=== PATIENT | female | born 1960 | race Asian ===

== ENCOUNTER 2017-03-09 10:15 | Day surgery (SDC) | payer OTHER ==
[~2017-03-09] VITALS: Ht 152.4 cm; Wt 54.4 kg
[~2017-03-09 10:15] MED LIST: GLUCOPHAGE500 MG PO
[2017-03-09 10:53] LABS: HEMATOCRIT 42.1 % (36.0-46.0); MCH 29.4 PG (29.0-34.0); MCHC 32.8 G/DL (30.0-36.0); MCV 89.6 FL (83-99); MEAN PLAT.VOLUME 9.4 uM^3 (9.5-12.4); PLATELET COUNT 207 K/uL (156-360); RBC DIS.WIDTH-CV 11.7 % (11.8-14.6); RBC DIS.WIDTH-SD 38.1 % (39-53); WHITE BLOOD COUNT 5.4 K/uL (4.1-10.2)
[2017-03-09 11:12] LABS: POINT-OF-CARE METER ID UU14174212
[2017-03-09 11:16] VITALS: BP 157/76
[2017-03-09 11:38] LABS: ALKALINE PHOSPHATASE 71 IU/L (3-129); ANION GAP 9 MEQ/L (2-14); CHLORIDE 106 MEQ/L (99-109); GFR ESTIMATE (CALCULATED) > 59 mL/min/; GLUCOSE 94 mg/dL (70-99); POTASSIUM 3.9 MEQ/L (3.7-5.4); SAMPLE HEMOLYSIS CHECK 0; SAMPLE ICTERIC CHECK 0; SAMPLE LIPEMIA CHECK 0; SODIUM 145 MEQ/L (136-147); TOTAL BILIRUBIN 0.7 MG/DL (0.0-1.0); UREA NITROGEN (BUN) 7 mg/dL (9-23)
[2017-03-09 13:58] LABS: POINT-OF-CARE METER ID UU13113675
[2017-03-09 14:15] VITALS: BP 147/76
[2017-03-09 14:51] VITALS: BP 140/76
== END 2017-03-09 15:03 | disposition home or self-care (01) ==
LOC: SDC 10:15
PROVIDERS: Ophthalmology
DX: H33.42 Traction detachment of retina, left eye (principal); H43.12 Vitreous hemorrhage, left eye; E11.39 Type 2 diabetes mellitus with other diabetic ophthalmic complication; I25.10 Atherosclerotic heart disease of native coronary artery without angina pectoris; Z79.84 Long term (current) use of oral hypoglycemic drugs; R94.31 Abnormal electrocardiogram [ECG] [EKG]
CPT/HCPCS: 80053; 82948; 85027; 93005; J0690; J1100; J2795; J3010; J3300

== ENCOUNTER 2017-04-17 05:47 | Day surgery (SDC) | payer OTHER ==
[~2017-04-17] VITALS: Ht 152.4 cm; Wt 54.4 kg
[2017-04-17 06:27] LABS: HEMATOCRIT 41.8 % (36.0-46.0); HEMOGLOBIN 13.6 G/DL (11.9-15.5); MCH 30.2 PG (29.0-34.0); MCHC 32.5 G/DL (30.0-36.0); MCV 92.9 FL (83-99); PLATELET COUNT 179 K/uL (156-360); RBC DIS.WIDTH-CV 11.9 % (11.8-14.6); RBC DIS.WIDTH-SD 40.9 % (39-53); WHITE BLOOD COUNT 4.7 K/uL (4.1-10.2)
[2017-04-17 06:31] VITALS: BP 152/75
[2017-04-17 06:45] LABS: ALBUMIN 4.3 G/DL (3.2-4.8); CHLORIDE 106 MEQ/L (99-109); POTASSIUM 3.9 MEQ/L (3.7-5.4); SODIUM 145 MEQ/L (136-147); TOTAL BILIRUBIN 0.4 MG/DL (0.0-1.0)
[2017-04-17 06:51] LABS: ALKALINE PHOSPHATASE 89 IU/L (3-129); ALT (GPT) 23 IU/L (3-49); AST (GOT) 19 IU/L (2-34); CREATININE 0.5 MG/DL (0.6-1.3); GFR ESTIMATE (CALCULATED) > 59 mL/min/; GLUCOSE 124 mg/dL (70-99); TOTAL PROTEIN 7.4 G/DL (6.4-8.3); UREA NITROGEN (BUN) 9 mg/dL (9-23)
[2017-04-17 08:58] VITALS: BP 136/72
[2017-04-17 09:30] VITALS: BP 132/61
== END 2017-04-17 09:30 | disposition home or self-care (01) ==
LOC: SDC 05:47
PROVIDERS: Ophthalmology
DX: H33.41 Traction detachment of retina, right eye (principal); H43.11 Vitreous hemorrhage, right eye; E11.9 Type 2 diabetes mellitus without complications; Z79.84 Long term (current) use of oral hypoglycemic drugs
CPT/HCPCS: 80053; 82948; 85027; J0690; J1100; J2795; J3300

== ENCOUNTER 2017-05-18 13:59 | Day surgery (SDC) | payer OTHER ==
[~2017-05-18] VITALS: Ht 152.4 cm; Wt 54.4 kg
[2017-05-18 14:55] VITALS: BP 150/70
[2017-05-18 18:10] VITALS: BP 157/73
[2017-05-18 19:10] VITALS: BP 167/76
== END 2017-05-18 19:10 | disposition home or self-care (01) ==
LOC: SDC 13:59
PROVIDERS: Ophthalmology
DX: H43.12 Vitreous hemorrhage, left eye (principal); E11.9 Type 2 diabetes mellitus without complications; Z79.84 Long term (current) use of oral hypoglycemic drugs; R94.31 Abnormal electrocardiogram [ECG] [EKG]
CPT/HCPCS: 82948; J0690; J1100; J1170; J2405; J2795

== ENCOUNTER 2017-09-14 10:14 | Day surgery (SDC) | payer OTHER ==
[~2017-09-14] VITALS: Ht 154.9 cm; Wt 55.3 kg
[2017-09-14 10:48] VITALS: BP 153/78
[2017-09-14 12:32] LABS: HEMOGLOBIN 13.2 G/DL (11.9-15.5); MCH 29.2 PG (29.0-34.0); MCHC 32.2 G/DL (30.0-36.0); MCV 90.7 FL (83-99); PLATELET COUNT 197 K/uL (156-360); RBC DIS.WIDTH-CV 11.6 % (11.8-14.6); RBC DIS.WIDTH-SD 38.7 % (39-53); RED BLOOD COUNT 4.52 M/uL (3.80-5.20); WHITE BLOOD COUNT 4.5 K/uL (4.1-10.2)
[2017-09-14 12:55] LABS: ALBUMIN 4.4 G/DL (3.2-4.8); ALKALINE PHOSPHATASE 72 IU/L (3-129); ALT (GPT) 29 IU/L (3-49); AST (GOT) 20 IU/L (2-34); CHLORIDE 104 MEQ/L (99-109); CREATININE 0.5 MG/DL (0.6-1.3); GFR ESTIMATE (CALCULATED) > 59 mL/min/; GLUCOSE 153 mg/dL (70-99); SODIUM 142 MEQ/L (136-147); TOTAL BILIRUBIN 0.7 MG/DL (0.0-1.0); TOTAL PROTEIN 7.2 G/DL (6.4-8.3); UREA NITROGEN (BUN) 10 mg/dL (9-23)
[2017-09-14 14:20] VITALS: BP 138/72
[2017-09-14 14:45] VITALS: BP 131/74
== END 2017-09-14 14:50 | disposition home or self-care (01) ==
LOC: SDC 10:14
PROVIDERS: Ophthalmology
PROC: 3E0C33Z Introduction of Anti-inflammatory into Eye, Percutaneous Approach (ICD-10-PCS; principal; 2017-09-14)
PROC: 08B43ZZ Excision of Right Vitreous, Percutaneous Approach (ICD-10-PCS; principal; 2017-09-14)
PROC: 08QE3ZZ Repair Right Retina, Percutaneous Approach (ICD-10-PCS; principal; 2017-09-14)
PROC: 3E0C329 Introduction of Other Anti-infective into Eye, Percutaneous Approach (ICD-10-PCS; principal; 2017-09-14)
DX: H43.11 Vitreous hemorrhage, right eye (principal); E11.9 Type 2 diabetes mellitus without complications; I10 Essential (primary) hypertension; Z79.84 Long term (current) use of oral hypoglycemic drugs
CPT/HCPCS: 80053; 82948; 85027; J0690; J1100; J2405; J2795; J3010; J3300